=== PATIENT | male | born 1950 | race Caucasian/White ===

== ENCOUNTER 2020-10-16 20:48 | Emergency (ER) | payer BC ==
--- NOTE | 2020-10-16 21:28 | EDM.PDOC ---
ED HPI GENERAL MEDICAL PROBLEM - General Chief Complaint: General Stated Complaint: LACERATION Time Seen by Provider: 10/16/20 21:10 Source of Information: Reports: Patient History Limitations: Reports: No Limitations - History of Present Illness INITIAL COMMENTS - FREE TEXT/NARRATIVE: patient presented to the ER with a c/o laceration to the tip of the right middle finger. He reports that 4 hrs ago, he was cutting onion strings and accidently shaved off the very small tip of his right middle finger. Bleeding stopped after sometime of pressure,, he also washed it clean. He decided to come to the ER for an evaluation. On ASA 81mg, no other blood thinners. No h/o DM. Denies pain at the moment. He is wondering what kind of dressing to put on. Onset: Today Duration: Hour(s): (4) Location: Reports: Upper Extremity, Right Quality: Reports: Sharp Severity: Mild Improves with: Reports: None Worsens with: Reports: None - Related Data Allergies Allergy/AdvReac Type Severity Reaction Status Date / Time No Known Allergies Allergy Verified 10/16/20 21:09 ED ROS GENERAL - Review of Systems Review Of Systems: See Below Constitutional: Reports: No Symptoms HEENT: Reports: No Symptoms Respiratory: Reports: No Symptoms Cardiovascular: Reports: No Symptoms GI/Abdominal: Reports: No Symptoms Neurological: Reports: No Symptoms ED EXAM, GENERAL - Physical Exam Exam: See Below Exam Limited By: No Limitations General Appearance: Alert, WD/WN, No Apparent Distress Nose: Normal Inspection Head: Atraumatic, Normocephalic Neck: Normal Inspection Respiratory/Chest: No Respiratory Distress Cardiovascular: Normal Peripheral Pulses GI/Abdominal: Normal Bowel Sounds Skin Exam: Other (a small area of skin avulsion at the tip of the right middle finger. no nail damage, no active bleeding) Course - Vital Signs Last Recorded V/S: Last Vital Signs Temp 36.4 C 10/16/20 20:55 Pulse 69 10/16/20 20:55 Resp 20 10/16/20 20:55 BP 158/91 H 10/16/20 20:55 Pulse Ox 97 10/16/20 20:55 - Re-Assessments/Exams Free Text/Narrative Re-Assessment/Exam: 10/16/20 21:27 wound was washed and cleaned. abx ointment and sterile dressing. Departure - Departure Time of Disposition: 21:28 Disposition: Home, Self-Care 01 Condition: Good Clinical Impression: Laceration of finger without complication Qualifiers: Encounter type: initial encounter Qualified Code(s): S61.219A - Laceration without foreign body of unspecified finger without damage to nail, initial encounter - Discharge Information *PRESCRIPTION DRUG MONITORING PROGRAM REVIEWED*: Not Applicable *COPY OF PRESCRIPTION DRUG MONITORING REPORT IN PATIENT SYDNEE: Not Applicable Referrals: PCP,None [Primary Care Provider] - Sepsis Event Note (ED) - Evaluation Sepsis Screening Result: No Definite Risk - Focused Exam Vital Signs: Vital Signs Temp Pulse Resp BP Pulse Ox 10/16/20 20:55 36.4 C 69 20 158/91 H 97 - Problem List & Annotations (1) Laceration of finger without complication SNOMED Code(s): 332943907 Code(s): S61.219A - LACERATION W/O FB OF UNSP FINGER W/O DAMAGE TO NAIL, INIT Status: Acute Priority: Low Current Visit: Yes Qualifiers: Encounter type: initial encounter Qualified Code(s): S61.219A - Laceration without foreign body of unspecified finger without damage to nail, initial encounter - Problem List Review Problem List Initiated/Reviewed/Updated: Yes - Assessment/Plan Plan: - apply antibiotics ointment on the wound once daily - keep wound cover for at least 72 hrs, then ok to remove the dressing, as long as you apply antibiotics daily - return to the ER if any signs of wound infection or call your PCP -Tylenol for pain as needed - apply a 15 min pressure if any bleeding
== END 2020-10-16 21:35 | disposition home or self-care (01) ==
LOC: LB.ED 20:48
DX: S61.212A Laceration without foreign body of right middle finger without damage to nail, initial encounter (principal); W26.9XXA Contact with unspecified sharp object(s), initial encounter
CPT/HCPCS: 99282

== ENCOUNTER 2023-03-04 15:45 | Emergency (ER) | payer BC ==
[2023-03-04] MEDS ORDERED: predniSONE 20 MG Tab PO ONE (16:13)
[2023-03-04] MEDS ORDERED: Sodium Chloride 0.9% 10 ML Syringe FLUSH PRN (16:22)
[2023-03-04] MEDS ORDERED: methylPREDNISolone Sodium Succinate 125 MG/2 ML SDV IVPUSH ONE (16:22)
[2023-03-04] MEDS ORDERED: cefTRIAXone 1 GM Vial IM ONE (16:23)
[2023-03-04] MEDS ORDERED: Hydrocortisone Acetate 1% Crm 30 GM Tube ONE (19:00)
[2023-03-04] MEDS ORDERED: predniSONE 10 MG Tab ONE (19:00)
[2023-03-04] MEDS ORDERED: Sulfamethoxazole/Trimethoprim 800-160 MG Tab ONE (19:00)
== END 2023-03-04 19:05 | disposition home or self-care (01) ==
LOC: LB.ED 15:45
DX: S60.463A Insect bite (nonvenomous) of left middle finger, initial encounter (principal); L08.9 Local infection of the skin and subcutaneous tissue, unspecified; I10 Essential (primary) hypertension; E78.00 Pure hypercholesterolemia, unspecified; N40.0 Benign prostatic hyperplasia without lower urinary tract symptoms; Z87.891 Personal history of nicotine dependence; Z79.82 Long term (current) use of aspirin; Z79.899 Other long term (current) drug therapy; W57.XXXA Bitten or stung by nonvenomous insect and other nonvenomous arthropods, initial encounter
CPT/HCPCS: 96372; 96374; 99281-25; A9270-GY; J0696; J2930; J7512